=== PATIENT | female | born 1990 | race Caucasian/White ===

== ENCOUNTER → 2019-07-19 | Outpatient (CLI) | payer OTHER ==
--- NOTE | 2019-07-19 12:20 | NUR ---
PT RETURNS FROM IR AT THIS TIME. VSS AND PT IN NO PAIN AND APPEARS TO BE COMFORTABLE. WILL CONTINUE TO MONITOR. SUPRAPUBIC CATHETER INSERTION SITE COVERED WITH DRESSING. NO OBVIOUS DRIANAGE AT THIS TIME.
[2019-07-19 12:27] VITALS: BP 174/112
[2019-07-19 12:56] VITALS: BP 143/94
== END | disposition home or self-care (01) ==
LOC: SPEC 09:38
DX: N31.9 Neuromuscular dysfunction of bladder, unspecified (principal)